=== PATIENT | female | born 1945 | race Caucasian/White ===

== ENCOUNTER 2018-01-11 11:02 | Outpatient (CLI) | payer MEDICARE ==
--- NOTE | 2018-01-11 13:45 | CT ---
CT LUMBAR SPINE WITHOUT CONTRAST: HISTORY: Lumbar radiculopathy. Low back pain with radiation down the left hip. Previous back surgery. COMPARISON: 04/07/2016 TECHNIQUE: A noncontrast lumbar spine CT is performed in the axial plane. Reformatted images are submitted for interpretation. FINDINGS: Stable rightward curvature of the lumbar spine with associated rotation. Stable endplate changes wit h osteophyte formation. Stable vacuum disk phenomenon. Interval placement of a right-sided transped icular screw at L4, L5, and S1. No perihardware lucency. Symmetric attenuation of the psoas muscles. Surgically absent gallbladder. The visualized solid org ans are grossly unremarkable. Atherosclerosis of a nonaneurysmal aorta. There is extensive calcific ation involving the left renal artery ostium. Correlate. Limited evaluation of the contents of the central spinal canal and neural foramina by technique. T11-T12: No high grade central canal stenosis or high grade foraminal narrowing. T12-L1: No high grade central canal stenosis or high grade foraminal narrowing. L1-L2: Severe loss of disk space height. No significant posterior disk abnormality. No significant central canal stenosis. The neural foramina appear to be patent bilaterally. L2-L3: Severe loss of disk space height. No significant central canal stenosis. The right neural f oramen is patent. Moderate left neural foraminal narrowing. L3-L4: Broad-based disk bulge results in at least mild to moderate central canal stenosis. The righ t neural foramen is patent. Moderate left neural foraminal narrowing. L4-L5: Broad-based disk bulge, ligamentum flavum thickening, and facet hypertrophy suggest moderate central canal stenosis. Evaluation is limited by beam attenuation artifact. At least mild bilateral foraminal narrowing. L5-S1: Vacuum disk phenomenon. There is significant loss of disk space height. [id number], the re is no high grade central canal stenosis. There may be mild central canal stenosis, predominantly due to disk material and ligamentum flavum thickening. Severe right and mild left foraminal narrowin g. IMPRESSION: 1. Interval placement of right-sided transpedicular screw at L4, L5, and S1. 2. Essentially stable degenerative change with varying degrees of central canal stenosis and foramin al narrowing. POS: [facility]
== END 2018-01-11 11:03 | disposition home or self-care (01) ==
LOC: TBSIIMAG 11:02
PROVIDERS: ATTEND Neurological Surgery
DX: M47.26 Other spondylosis with radiculopathy, lumbar region (principal); M48.061 Spinal stenosis, lumbar region without neurogenic claudication; M99.83 Other biomechanical lesions of lumbar region; Z98.890 Other specified postprocedural states
CPT/HCPCS: 72131

== ENCOUNTER 2018-02-05 05:33 | Inpatient (IN) | payer MEDICARE ==
--- NOTE | 2018-02-04 21:14 | HP ---
HISTORY OF PRESENT ILLNESS: Ms. Araujo is known to us for past unilateral fusion construct on the ny ght from L4 to S1, roughly a year and a half ago who did extraordinarily well, but the last few month s she started to experience some subsequent return of symptoms. We repeated a CT scan, which reveals fracture of the right S1 pedicle screw with some collapse of the foramen. She hopes to move forward with some type of surgical intervention at this time. PAST MEDICAL HISTORY: Significant for hypertension, hypothyroidism, hyperlipidemia, and gout. MEDICATIONS: Allopurinol, levothyroxine, Crestor, hydrochlorothiazide, diltiazem, metoprolol, citalo pram. ALLERGIES: SARAH INHIBITORS and LATEX. PHYSICAL EXAMINATION: The patient is alert and oriented x3. Gait is mildly antalgic using a cane. Lower extremity motor exam is normal. ASSESSMENT: Lumbar fusion failure and radiculopathy. PLAN: Dr. Bravo met with the patient, reviewed imaging and advocated for lumbar fusion exploration w ith facetectomy and hardware removal with possible replacement of the screw. He explained to the pat ient the risks, benefits, and alternatives of the procedure. The patient expressed understanding and would like to move forward with surgery as discussed. I do believe the patient is mentally competen t and capable of making medical decisions for herself and we will move forward with surgery as luis freeman
[2018-02-05] MEDS ORDERED: Bupivacaine HCl 0.5%/Epinephrine 1:200,000/PF 30 ml Vial ONE (06:17)
[2018-02-05] MEDS ORDERED: Thrombin 5000 UNITS/5 ML VIAL ONE (06:17)
[2018-02-05] MEDS ORDERED: Fentanyl 100 MCG/2 ML VIAL ONE ×4 (06:19→08:41)
[2018-02-05] MEDS ORDERED: Famotidine/PF 20 mg/2ml Vial ONE (06:19)
[2018-02-05] MEDS ORDERED: CEFAZOLIN/Water 2 GM/20 ML SYRINGE ONE ×2 (06:40→11:32)
[2018-02-05 07:05] LABS: Anion Gap 13 mmol/L (10-20); BUN (Urea Nitrogen) 8 mg/dL (9.8-20.1); Calc. Creatinine Clearance 0 mL/min (70-130); Calcium 9.2 mg/dL (7.8-10.44); Carbon Dioxide 25 mmol/L (23-31); Chloride 103 mmol/L (98-107); Estimated GFR-MDRD 71; Glucose 116 mg/dL (83-110); Potassium 3.8 mmol/L (3.5-5.1); Sodium 137 mmol/L (136-145)
[2018-02-05] MEDS ORDERED: SUGAMMADEX SODIUM 200 MG/2 ML VIAL ONE (08:10)
--- NOTE | 2018-02-05 08:15 | OP ---
DATE OF PROCEDURE: 02/05/2018 SURGEON: Zhen Bravo M.D. FORGING DIE FINISHER: Raúl Holt PA-C. INDICATION: Hardware failure and back pain. PROCEDURE: Reoperation, removal of posterior instrumentation including L4 through S1 royal and removal of the non-retained right S1 screw, exploration of fusion, reinsertion of hardware. ANESTHESIA: General. TECHNIQUE: The patient was brought into the operating room and placed under general anesthesia. She was flipped from a supine to a prone position on the operating room table. Her old linear incision was identified and prepped and draped in usual sterile fashion. Following appropriate operative paus e, the incision was created. Soft tissues were swept away from midline on the right side. The 3 scr ew heads were identified spanning L4-5, S1 facet screws were removed. A royal was subsequently removed . There was a loose screw identified at S1. This was removed. There was a retained portion deep wi thin the pedicle and bone that was not removed. After removal of the S1 screw a new royal was placed a long the L4 and L5 screw heads. The set screws were then replaced and final tightened. There was ec topic bone present throughout this region indicative of fusion. No additional allograft. No additio nal allograft was placed within the wound. The wound was irrigated. Hemostasis was maintained throu ghout. The wound was then closed in anatomic layers and a pressure dressing was applied. There were no known procedural complications.
[2018-02-05] MEDS ORDERED: Morphine 4 MG/ML VIAL ONE (11:03)
[2018-02-05] MEDS ORDERED: Acetaminophen/Codeine 30-300mg Tablet ONE (11:32)
[2018-02-05] MEDS ORDERED: Ondansetron ODT 4 MG TAB ONE (12:00)
--- NOTE | 2018-02-06 17:39 | EKG ---
Test Reason : Blood Pressure : / mmHG Vent. Rate : 055 BPM Atrial Rate : 055 BPM P-R Int : 196 ms QRS Dur : 100 ms QT Int : 470 ms P-R-T Axes : 063 074 033 degrees QTc Int : 449 ms Sinus bradycardia with occasional Premature ventricular complexes Otherwise normal ECG When compared with ECG of 27-JUN-2016 11:56, Premature ventricular complexes are now Present Nonspecific T wave abnormality no longer evident in Lateral leads Confirmed by DR. Kaycee MENDEZ ([id number]) on 02/06/2018 5:39:43 PM Referred By: Sigrid COREA Confirmed By:DR. Kaycee MENDEZ
== END 2018-02-05 12:15 | disposition home or self-care (01) | DRG 497 ==
LOC: SURG A 05:33 → EDSTATUS 14:39
PROVIDERS: ADMIT Neurological Surgery; ATTEND Neurological Surgery
PROC: 0QP004Z Removal of Internal Fixation Device from Lumbar Vertebra, Open Approach (ICD-10-PCS; principal; 2018-02-05)
PROC: 0QP104Z Removal of Internal Fixation Device from Sacrum, Open Approach (ICD-10-PCS; 2018-02-05)
PROC: 0QH004Z Insertion of Internal Fixation Device into Lumbar Vertebra, Open Approach (ICD-10-PCS; 2018-02-05)
DX: T84.216A Breakdown (mechanical) of internal fixation device of vertebrae, initial encounter (principal); M54.16 Radiculopathy, lumbar region; I10 Essential (primary) hypertension; E03.9 Hypothyroidism, unspecified; E78.5 Hyperlipidemia, unspecified; M10.9 Gout, unspecified; Z88.8 Allergy status to other drugs, medicaments and biological substances; Z91.040 Latex allergy status; Y83.1 Surgical operation with implant of artificial internal device as the cause of abnormal reaction of the patient, or of later complication, without mention of misadventure at the time of the procedure
CPT/HCPCS: 76001; 80048; 93005; 93010; 96374; C1713; J0131; J0670; J2270; J3010; Q0162; S0028

== ENCOUNTER 2018-03-27 10:14 | Outpatient (CLI) | payer MEDICARE ==
--- NOTE | 2018-03-27 11:41 | RAD ---
LUMBAR SPINE TWO VIEWS: HISTORY: A 72-year-old female with a history of low back pain. COMPARISON: 08/16/2016 FINDINGS: Severe dextroscoliosis. Pedicle screws at L4 and L5 with a partial screw at S1. IMPRESSION: 1. Stable dextroscoliosis. 2. Right-sided pedicle screws at L4 and L5 with a partial screw in the right S1. POS: [facility]
== END 2018-03-27 10:15 | disposition home or self-care (01) ==
LOC: TBSIIMAG 10:14
PROVIDERS: ATTEND Neurological Surgery
DX: M54.5 Low back pain (principal); M41.9 Scoliosis, unspecified; Z98.890 Other specified postprocedural states
CPT/HCPCS: 72100

== ENCOUNTER 2021-09-21 16:30 | Outpatient (CLI) | payer MEDICARE | END 2021-09-21 16:31 | disposition home or self-care (01) | LOC: SLEEPLAB 16:30 | PROVIDERS: ATTEND Family Medicine | DX: G47.33 Obstructive sleep apnea (adult) (pediatric) (principal); R53.83 Other fatigue; R51.9 Headache, unspecified; R06.83 Snoring; I10 Essential (primary) hypertension; G47.00 Insomnia, unspecified; R09.02 Hypoxemia | CPT/HCPCS: 95800 ==

== ENCOUNTER 2021-12-12 19:00 | Outpatient (CLI) | payer MEDICARE | END 2021-12-12 19:01 | disposition home or self-care (01) | LOC: SLEEPLAB 19:00 | PROVIDERS: ATTEND Family Medicine | DX: G47.33 Obstructive sleep apnea (adult) (pediatric) (principal); G47.9 Sleep disorder, unspecified; R53.83 Other fatigue; R51.9 Headache, unspecified; R06.83 Snoring; I10 Essential (primary) hypertension; R09.02 Hypoxemia | CPT/HCPCS: 95811 ==

== ENCOUNTER 2023-02-27 19:56 | Emergency (ER) | payer MEDICARE ==
[2023-02-27] MEDS ORDERED: Ketorolac Tromethamine 30 MG/ML VIAL ONE (22:53)
== END 2023-02-27 23:20 | disposition home or self-care (01) ==
LOC: ERS 19:56
DX: M54.2 Cervicalgia (principal); E03.9 Hypothyroidism, unspecified; E78.5 Hyperlipidemia, unspecified; I10 Essential (primary) hypertension; Z87.891 Personal history of nicotine dependence; Z79.899 Other long term (current) drug therapy
CPT/HCPCS: 72125; 93005; 96372; J1885

== ENCOUNTER 2023-06-26 08:00 | Inpatient (IN) | payer MEDICARE ==
[2023-06-26 10:58] LABS: Hematocrit 39.4 % (34.9-44.5); Hemoglobin 13.1 g/dL (12.0-15.5); Mean Corpuscular HGB CONC 33.2 g/dL (32.0-36.0); Mean Corpuscular Hemoglobin 31.3 pg (27.0-33.0); Platelet Count 292 10x3/uL (150-450); RBC Distribution Width 15.9 % (11.5-14.5); Red Blood Cell (RBC) Count 4.19 10x6/uL (3.90-5.03); White Blood Cell (WBC) Count 10.6 10x3/uL (3.5-10.5)
[2023-06-26 11:34] LABS: Anion Gap 13 mmol/L (10-20); BUN (Urea Nitrogen) 12 mg/dL (9.8-20.1); Calc. Creatinine Clearance 0 mL/min (70-130); Calcium 9.1 mg/dL (7.8-10.44); Carbon Dioxide 25 mmol/L (23-31); Chloride 103 mmol/L (98-107); Estimated GFR 61; Glucose 104 mg/dL (83-110); Potassium 4.2 mmol/L (3.5-5.1); Sodium 137 mmol/L (136-145)
[2023-06-27] MEDS ORDERED: Heparin 5,000 UNITS/ML VIAL ONE (06:15)
[2023-06-27] MEDS ORDERED: Bupivacaine PF 0.5% 30 ML VIAL ONE (06:15)
[2023-06-27] MEDS ORDERED: Protamine Sulfate 50 MG/5 ML VIAL ONE (06:15)
[2023-06-27] MEDS ORDERED: EPINEPHrine 1 MG/ML VIAL ONE (06:15)
[2023-06-27] MEDS ORDERED: Heparin 10,000 UNITS/1 ML VIAL 30,000 UNITS in Sodium Chloride 0.9% 1,000 ML FS SCH (06:30)
[2023-06-27] MEDS ORDERED: Fentanyl 250 MCG/5 ML VIAL ONE (06:48)
[2023-06-27] MEDS ORDERED: Etomidate 40 MG (20 mL) VIAL ONE (06:53)
[2023-06-27] MEDS ORDERED: Albumin 5% 500 ML ONE (06:53)
[2023-06-27] MEDS ORDERED: Nitroglycerin 50 MG/250 ML BOT 250 ML ONE (06:53)
[2023-06-27] MEDS ORDERED: Phenylephrine 40 MG/NS 250 ML 500 ML ONE (06:53)
[2023-06-27] MEDS ORDERED: Sodium Chloride 0.9% 100 ML ONE (07:25)
[2023-06-27] MEDS ORDERED: CEFAZOLIN 2 GM VIAL ONE (07:25)
[2023-06-27] MEDS ORDERED: Midazolam HCl 2 mg/2 ml Vial ONE (07:38)
[2023-06-27] MEDS ORDERED: ePHEDrine Sulfate 50 MG/10 ML VIAL ONE (08:37)
[2023-06-27] MEDS ORDERED: SUGAMMADEX SODIUM 200 MG/2 ML VIAL ONE (10:11)
[2023-06-27] MEDS ORDERED: diphenhydrAMINE 50 MG/ML VIAL ONE (10:15)
[2023-06-27] MEDS ORDERED: Ondansetron PF 4 MG/2 ML Vial ONE (10:15)
[2023-06-27] MEDS ORDERED: Rocuronium Bromide 10 MG/ML (10ML VIAL) ONE (10:16)
[2023-06-27] MEDS ORDERED: hydrALAZINE 20 MG/ML VIAL ONE (10:25)
[2023-06-27] MEDS ORDERED: Lidocaine 2% 6 ML (Jelly) SYR ONE (10:38)
[2023-06-27] MEDS ORDERED: Naloxone HCl 0.4 mg/ml Vial IV PRN (10:43)
[2023-06-27] MEDS ORDERED: diphenhydrAMINE 25 MG CAP PO PRN (10:43)
[2023-06-27] MEDS ORDERED: FENTANYL 500 MCG/10 ML VIAL 2,000 MCG in Sodium Chloride 0.9% 60 ML IV PRN (10:43)
[2023-06-27] MEDS ORDERED: Promethazine HCl 25 MG/ML VIAL IM PRN (10:43)
[2023-06-27] MEDS ORDERED: diphenhydrAMINE 50 MG/ML VIAL IM PRN (10:43)
[2023-06-27] MEDS ORDERED: diphenhydrAMINE 50 MG/ML VIAL IVP PRN (10:43)
[2023-06-27] MEDS ORDERED: Nitroglycerin 50 MG/250 ML BOT 250 ML IVPB PRN (10:44)
[2023-06-27] MEDS ORDERED: Ondansetron PF 4 MG/2 ML Vial IVP PRN (10:44)
[2023-06-27] MEDS ORDERED: hydrALAZINE 20 MG/ML VIAL SLOW IVP PRN (10:44)
[2023-06-27] MEDS ORDERED: Ipratropium/Albuterol 3 ML NEB NEB PRN (10:44)
[2023-06-27] MEDS ORDERED: Phenylephrine 40 MG in Sodium Chloride 0.9% 250 ML 250 ML IVPB PRN (10:44)
[2023-06-27] MEDS ORDERED: Communication Order-Pharmacy FS SCH (10:45)
[2023-06-27] MEDS ORDERED: Ondansetron HCl/PF 4 MG/2 ML Vial IVP PRN (10:45)
[2023-06-27] MEDS ORDERED: PHENYLEPHRINE-NS 100 MCG/ML 10 ML SYRINGE ONE (10:59)
[2023-06-27] MEDS ORDERED: fentaNYL 50 mcg/mL 1 mL Vial ONE (11:34)
[2023-06-27 11:35] LABS: #Basophils 0.1 thou/uL (0.0-0.2); #Eosinphils 0.2 thou/uL (0.0-0.7); #Monocytes 1.5 thou/uL (0.11-0.59); #Neutrophils 15.1 thou/uL (1.40-6.50); %Basophils 0.3 % (0.0-1.0); %Eosinophils 1.1 % (0.0-10.0); %Lymphocytes 15.2 % (21.0-51.0); %Monocytes 7.4 % (0.0-10.0); %Neutrophils 75.4 % (42.0-75.0); Hemoglobin 11.1 g/dL (12.0-16.0); Mean Corpuscular HGB CONC 33.6 g/dL (32.0-36.0); Mean Corpuscular Hemoglobin 31.7 pg (27.0-31.0); Mean Corpuscular Volume 94.3 fl (78.0-98.0); Mean Platelet Volume 10.2 fL (7.4-10.4); Platelet Count 227 10x3/uL (130-400); RBC Distribution Width 15.9 % (11.5-14.5); White Blood Cell (WBC) Count 19.9 10x3/uL (4.8-10.8)
[2023-06-27 11:57] LABS: Anion Gap 13 mmol/L (10-20); BUN (Urea Nitrogen) 9 mg/dL (9.8-20.1); Calc. Creatinine Clearance 60 mL/min (70-130); Calcium 7.8 mg/dL (7.8-10.44); Carbon Dioxide 20 mmol/L (23-31); Chloride 110 mmol/L (98-107); Estimated GFR 57; Glucose 191 mg/dL (83-110); Potassium 3.2 mmol/L (3.5-5.1); Sodium 140 mmol/L (136-145)
[2023-06-27] MEDS: Phenylephrine 40 MG/NS 250 ML 40 MG in Premix 1 BAG IVPB PRN (12:01)
[2023-06-27] MEDS: D5 1/2 NS w/20 mEq KCL 1,000 ML IV SCH (12:01)
[2023-06-27] MEDS: Fentanyl CADD 100 ML IVPB SCH (12:37)
[2023-06-27] MEDS: Albumin 5% 500 ML ONE (14:39)
[2023-06-27] MEDS: Albumin 5% 12.5 GM (250 mL) BOT IVPB SCH (14:48)
[2023-06-27] MEDS: CEFAZOLIN 2 GM in Sodium Chloride 0.9% 100 ML IVPB SCH (15:54)
[2023-06-28] MEDS: Albumin 5% 12.5 GM (250 mL) BOT IVPB PRN (01:15)
[2023-06-28 05:11] LABS: #Monocytes 1.4 thou/uL (0.11-0.59); #Neutrophils 8.7 thou/uL (1.40-6.50); %Basophils 0.2 % (0.0-1.0); %Eosinophils 0.4 % (0.0-10.0); %Lymphocytes 7.6 % (21.0-51.0); %Monocytes 12.3 % (0.0-10.0); %Neutrophils 79.1 % (42.0-75.0); Hematocrit 27.8 % (36.0-47.0); Mean Corpuscular HGB CONC 32.4 g/dL (32.0-36.0); Mean Corpuscular Hemoglobin 31.4 pg (27.0-31.0); Mean Corpuscular Volume 96.9 fl (78.0-98.0); Mean Platelet Volume 10.1 fL (7.4-10.4); Platelet Count 184 10x3/uL (130-400); RBC Distribution Width 16.1 % (11.5-14.5); Red Blood Cell (RBC) Count 2.87 mill/uL (4.20-5.40)
[2023-06-28] MEDS: Sodium Chloride 0.9% 1,000 ML IV SCH (08:02)
[2023-06-28] MEDS: Acetaminophen 325 MG TAB PO PRN (08:11)
[2023-06-28] MEDS: Ondansetron PF 4 MG/2 ML Vial IVP PRN (14:28)
[2023-06-28] MEDS: Lactated Ringer's 500 ML IV SCH ×2 (19:31→21:30)
[2023-06-28] MEDS: Lorazepam 2 MG/ML VIAL SLOW IVP SCH (19:34)
[2023-06-28] MEDS ORDERED: Lactated Ringer's 1,000 ML IV SCH (19:45)
[2023-06-28 19:48] LABS: Hematocrit 30.5 % (36.0-47.0); Hemoglobin 9.7 g/dL (12.0-16.0); Manual Diff?? YES; Mean Corpuscular HGB CONC 31.8 g/dL (32.0-36.0); Mean Corpuscular Hemoglobin 31.3 pg (27.0-31.0); Mean Corpuscular Volume 98.4 fl (78.0-98.0); Mean Platelet Volume 10.4 fL (7.4-10.4); Platelet Count 185 10x3/uL (130-400); RBC Distribution Width 16.5 % (11.5-14.5); White Blood Cell (WBC) Count 13.9 10x3/uL (4.8-10.8)
[2023-06-28] MEDS: NOREPINEPHRINE 8 MG/250 ML-D5W 250 ML ONE (19:49)
[2023-06-28 19:52] LABS: Base Excess (BEa) -14.6 mEq/L (-2.0 to +3.0); CO2 Tension 28.4 mmHg (35.0-45.0); Calcium, Ionized (arterial) 1.12 mmol/L (1.12-1.30); Carboxyhemoglobin (COHb) 0.3 gm% (0.0-3.0); Hematocrit-ABG 30 % (36.0-47.0); Hemoglobin (Hb) 10.3 g/dL (12.0-16.0); O2 Tension (PaO2), arterial 126.8 mmHg (> 70.0); pH, Arterial 7.228 (7.35-7.45)
[2023-06-28 19:54] LABS: Puncture Site RBA
[2023-06-28] MEDS ORDERED: Glucagon 1 MG/ML KIT IM PRN (19:57)
[2023-06-28] MEDS ORDERED: Dextrose 5% in Water 1,000 ML IV PRN (19:57)
[2023-06-28] MEDS: Sodium Bicarb 50 mEq/50 ML VIAL ONE (19:59)
[2023-06-28] MEDS: Lactated Ringer's 1,000 ML IV SCH (20:00)
[2023-06-28] MEDS ORDERED: Cefepime 2 GM in Sodium Chloride 0.9% 100 ML IVPB SCH (20:00)
[2023-06-28] MEDS: Thiamine HCl 200 MG/2 ML VIAL SLOW IVP SCH (20:02)
[2023-06-28 20:03] LABS: ALT (SGPT) 37 U/L (8-55); AST (SGOT) 174 U/L (5-34); Alkaline Phosphatase 45 U/L (40-110); Anion Gap 17 mmol/L (10-20); BUN (Urea Nitrogen) 18 mg/dL (9.8-20.1); Calc. Creatinine Clearance 23 mL/min (70-130); Calcium 7.8 mg/dL (7.8-10.44); Carbon Dioxide 13 mmol/L (23-31); Chloride 114 mmol/L (98-107); Estimated GFR 18; Globulin 1.8 g/dL (2.4-3.5); Glucose 121 mg/dL (83-110); Lipase 15 U/L (8-78); Magnesium 1.4 mg/dL (1.6-2.6); Potassium 4.5 mmol/L (3.5-5.1); Protein, Total 4.8 g/dL (5.8-8.1); Sodium 139 mmol/L (136-145)
[2023-06-28] MEDS: Lorazepam 2 MG/ML VIAL ONE (20:03)
[2023-06-28 20:07] LABS: Delete Auto Diff?? YES
[2023-06-28] MEDS: Vancomycin (BATCH) 2 GM in Premix 1 BAG IVPB SCH (20:12)
[2023-06-28] MEDS: Sodium Bicarb 50 mEq/50 ML VIAL IVP SCH (20:15)
[2023-06-28 20:25] LABS: Band 39 % (5-11); Burr Cells SLIGHT = 2-5 cells HPF (0-1); CellaVision Operator ID LAB.KB; Lymphocytes 11 % (21-51); Monocytes 7 % (0-10); Neutrophil 42 % (42-75); Ovalocytes SLIGHT = 2-5 cells HPF (0-1); Platelet Adequacy Comment Platelets Normal; Polychromasia SLIGHT = 2-3 cells HPF (0-2); Total Cell Count 102
[2023-06-28 20:26] LABS: Critical Call Chem-Lactate ICU.SW @2025; Lactic Acid 6.6 mmol/L (0.5-2.2)
[2023-06-28 21:17] LABS: Bacteria/HPF 1+ HPF (None Seen); Bilirubin Negative (Negative); Blood, Urine 3+ (Negative); CAUTI Indications for Culture Alt mental st,lethar; Clarity Turbid (Clear); Glucose, Urine (Dipstick) Normal (Negative); Ketone, Urine 10 mg/dL (Negative); Leukocyte 75 Leu/uL (Negative); Nitrite Negative (Negative); Protein, Urine (Dipstick) 70 mg/dL (Neg-Trace); RBC/HPF Greater than 50 HPF (0-3); Specific Gravity, Urine 1.027 (1.002-1.036); Squamous Epithelial 0-3 HPF (0-3); Urobilinogen Normal mg/dL (Less than 2); pH, Urine 5.5 (5.0-9.0)
[2023-06-28 21:18] LABS: Urine Culture Reflex No No
[2023-06-28] MEDS: Sodium Bicarbonate 150 MEQ in Dextrose 5% in Water 1,000 ML IV SCH (21:42)
[2023-06-28] MEDS: Magnesium 2 GM/50 ML(in water) 2 GM in Premix 1 BAG IVPB SCH (21:43)
[2023-06-28] MEDS: Pantoprazole 40 MG VIAL IVP SCH (21:44)
[2023-06-28] MEDS: Piperacillin/Tazobactam 3.375 GM in Sodium Chloride 0.9% 100 ML IVPB SCH (21:44)
[2023-06-28] MEDS: Vasopressin 20 UNITS in Sodium Chloride 0.9% 50 ML IV SCH (22:10)
[2023-06-28] MEDS: Hydrocortisone Sod Succ/PF 100 mg/2 ml Vial IVP SCH (22:27)
[2023-06-29] MEDS: Piperacillin/Tazobactam 3.375 GM in Sodium Chloride 0.9% 100 ML IVPB SCH (00:35)
[2023-06-29 00:59] LABS: Hematocrit 30.7 % (36.0-47.0); Hemoglobin 9.5 g/dL (12.0-16.0); Manual Diff?? YES; Mean Corpuscular HGB CONC 30.9 g/dL (32.0-36.0); Mean Corpuscular Hemoglobin 30.5 pg (27.0-31.0); Mean Corpuscular Volume 98.7 fl (78.0-98.0); Mean Platelet Volume 10.6 fL (7.4-10.4); Platelet Count 171 10x3/uL (130-400); RBC Distribution Width 16.6 % (11.5-14.5); Red Blood Cell (RBC) Count 3.11 mill/uL (4.20-5.40)
[2023-06-29 01:18] LABS: Delete Auto Diff?? YES
[2023-06-29 01:21] LABS: Critical Call Chem-Lactate ICU.SW@0120; Lactic Acid 7.1 mmol/L (0.5-2.2)
[2023-06-29 01:31] LABS: ALT (SGPT) 330 U/L (8-55); AST (SGOT) 814 U/L (5-34); Albumin 2.7 g/dL (3.4-4.8); Alkaline Phosphatase 50 U/L (40-110); Anion Gap 18 mmol/L (10-20); BUN (Urea Nitrogen) 21 mg/dL (9.8-20.1); Calc. Creatinine Clearance 24 mL/min (70-130); Calcium 7.6 mg/dL (7.8-10.44); Carbon Dioxide 15 mmol/L (23-31); Chloride 111 mmol/L (98-107); Estimated GFR 18; Globulin 1.7 g/dL (2.4-3.5); Glucose 118 mg/dL (83-110); Potassium 4.1 mmol/L (3.5-5.1); Protein, Total 4.4 g/dL (5.8-8.1); Sodium 140 mmol/L (136-145)
[2023-06-29 01:36] LABS: Band 25 % (5-11); Burr Cells MODERATE= 6-15 cells HPF (0-1); CellaVision Operator ID LAB.KB; Hypochromia SLIGHT = 6-15 cells HPF (0-5); Large Platelets 0.9 % (0-5); Lymphocytes 5 % (21-51); Monocytes 7 % (0-10); Myelocyte 2 % (0-0); Neutrophil 62 % (42-75); Ovalocytes SLIGHT = 2-5 cells HPF (0-1); Platelet Adequacy Comment Platelets Normal; Polychromasia SLIGHT = 2-3 cells HPF (0-2); Smudge Cells 2.8 %; Total Cell Count 107
[2023-06-29] MEDS: Albumin 25% 25 GM (100 mL) BOT IVPB SCH (03:12)
[2023-06-29] MEDS: NOREPINEPHRINE 8 MG/250 ML-D5W 250 ML IVPB SCH (03:56)
[2023-06-29 04:54] LABS: Hematocrit 27.6 % (36.0-47.0); Hemoglobin 8.7 g/dL (12.0-16.0); Manual Diff?? YES; Mean Corpuscular HGB CONC 31.5 g/dL (32.0-36.0); Mean Corpuscular Hemoglobin 31.1 pg (27.0-31.0); Mean Corpuscular Volume 98.6 fl (78.0-98.0); Platelet Count 167 10x3/uL (130-400); RBC Distribution Width 16.7 % (11.5-14.5)
[2023-06-29 05:21] LABS: Delete Auto Diff?? YES
[2023-06-29 05:23] LABS: ALT (SGPT) 667 U/L (8-55); AST (SGOT) 2154 U/L (5-34); Albumin 3.1 g/dL (3.4-4.8); Alkaline Phosphatase 49 U/L (40-110); Anion Gap 20 mmol/L (10-20); BUN (Urea Nitrogen) 23 mg/dL (9.8-20.1); Bilirubin, Total 1.1 mg/dL (0.2-1.2); Calc. Creatinine Clearance 23 mL/min (70-130); Calcium 7.7 mg/dL (7.8-10.44); Carbon Dioxide 16 mmol/L (23-31); Chloride 108 mmol/L (98-107); Estimated GFR 17; Globulin 1.6 g/dL (2.4-3.5); Glucose 158 mg/dL (83-110); Magnesium 1.7 mg/dL (1.6-2.6); Phosphorus 4.9 mg/dL (2.3-4.7); Protein, Total 4.7 g/dL (5.8-8.1); Sodium 140 mmol/L (136-145)
[2023-06-29 05:24] LABS: Lactic Acid 7.7 mmol/L (0.5-2.2)
[2023-06-29] MEDS: Lactated Ringer's 500 ML IV SCH (05:50)
[2023-06-29] MEDS: Lactated Ringer's 1,000 ML IV SCH ×2 (06:11→16:00)
[2023-06-29 07:11] LABS: ALV-art Gradient 240.975 mmHg (0-20); Actual Bicarbonate (HCO3a) 14.9 mEq/L (22-28); Base Excess (BEa) -11.8 mEq/L (-2.0 to +3.0); CO2 Tension 36.9 mmHg (35.0-45.0); Carboxyhemoglobin (COHb) 0.2 gm% (0.0-3.0); Hematocrit-ABG 28 % (36.0-47.0); Hemoglobin (Hb) 9.5 g/dL (12.0-16.0); O2 Tension (PaO2), arterial 69.4 mmHg (> 70.0); Potassium - ABG Lab 4.01 mmol/L (3.70-5.30); Puncture Site RBA; pH, Arterial 7.224 (7.35-7.45)
[2023-06-29] MEDS: Furosemide 40 MG (4 mL) VIAL SLOW IVP SCH (08:07)
[2023-06-29 08:14] LABS: Band 20 % (5-11); Lymphocytes 6 % (21-51); Metamyelocyte 2 % (0-0); Monocytes 9 % (0-10); Neutrophil 63 % (42-75); Schistocytes SLIGHT = 2-5 cells (100X) (0-1/hpf)
[2023-06-29 08:15] LABS: Burr Cells MODERATE= 6-15 cells (100X) (0-1/hpf)
[2023-06-29] MEDS ORDERED: Vancomycin HCl 750 MG in Sodium Chloride 0.9% 100 ML IVPB SCH (09:00)
[2023-06-29] MEDS ORDERED: KETAMINE 100 MG/ML (5ML VIAL) ONE (09:28)
[2023-06-29 09:47] LABS: Actual Bicarbonate (HCO3a) 11.6 mEq/L (22-28)
[2023-06-29] MEDS: Folic Acid 1 MG TAB PO SCH (10:15)
[2023-06-29] MEDS: Multivitamin W/ Minerals 1 TAB PO SCH (10:15)
[2023-06-29] MEDS: Hydrocortisone Sod Succ/PF 100 mg/2 ml Vial IVP SCH (10:17)
[2023-06-29] MEDS: Pantoprazole 40 MG VIAL IVP SCH (10:17)
[2023-06-29 10:41] LABS: Base Excess (BEa) -13.7 mEq/L (-2.0 to +3.0); CO2 Tension 41.4 mmHg (35.0-45.0); Calcium, Ionized (arterial) 1.11 mmol/L (1.12-1.30); Carboxyhemoglobin (COHb) 0.1 gm% (0.0-3.0); Hematocrit-ABG 33 % (36.0-47.0); Hemoglobin (Hb) 11.1 g/dL (12.0-16.0); O2 Tension (PaO2), arterial 61.6 mmHg (> 70.0); Potassium - ABG Lab 4.37 mmol/L (3.70-5.30)
[2023-06-29 10:49] LABS: Puncture Site RBA; pH, Arterial 7.157 (7.35-7.45)
[2023-06-29] MEDS ORDERED: Calcium Chloride 1 GM/10 ML Abboject SYRINGE ONE (11:30)
[2023-06-29] MEDS ORDERED: EPINEPHrine 1 MG/10 ML Abboject SYRINGE ONE (11:30)
[2023-06-29] MEDS ORDERED: Lactated Ringer's 1,000 ML IV SCH (11:30)
[2023-06-29] MEDS ORDERED: Albumin 5% 500 ML ONE (11:30)
[2023-06-29] MEDS ORDERED: Vasopressin 20 UNITS/ML VIAL ONE ×2 (11:30→12:53)
[2023-06-29] MEDS ORDERED: Rocuronium Bromide 10 MG/ML (10ML VIAL) ONE (11:45)
[2023-06-29] MEDS ORDERED: ePHEDrine Sulfate 50 MG/10 ML VIAL ONE (11:46)
[2023-06-29] MEDS ORDERED: fentaNYL PF 100 MCG/2 ML SYRINGE ONE (11:46)
[2023-06-29] MEDS ORDERED: PHENYLEPHRINE-NS 100 MCG/ML 10 ML SYRINGE ONE (11:46)
[2023-06-29] MEDS ORDERED: Midazolam HCl 2 mg/2 ml Vial ONE (11:46)
[2023-06-29] MEDS ORDERED: Etomidate 40 MG (20 mL) VIAL ONE (11:47)
[2023-06-29] MEDS: Sodium Bicarb 50 mEq/50 ML VIAL IVP SCH (12:00)
[2023-06-29] MEDS: Sodium Bicarb 50 mEq/50 ML VIAL ONE (12:01)
[2023-06-29] MEDS ORDERED: SUCCINYLCHOLINE/SOD CL,ISO/PF 200 MG/10 ML SYRINGE FS ONE (12:12)
[2023-06-29] MEDS ORDERED: Norepinephrine 4 MG/4 ML VIAL ONE (12:17)
[2023-06-29] MEDS: Sodium Bicarbonate 150 MEQ in Dextrose 5% in Water 1,000 ML IV SCH (12:30)
[2023-06-29] MEDS ORDERED: cefOXitin 2 GM VIAL ONE (12:40)
[2023-06-29 13:01] LABS: Actual Bicarbonate (HCO3a) 22.8 mEq/L (22-28); Analyzer IN Cardio OR; Base Excess (BEa) -0.7 mEq/L (-2.0 to +3.0); CO2 Tension 33.5 mmHg (35.0-45.0); Calcium, Ionized (arterial) 1.14 mmol/L (1.12-1.30); Hematocrit-ABG 32 % (36.0-47.0); O2 Tension (PaO2), arterial 436.3 mmHg (> 70.0); Potassium - ABG Lab 3.47 mmol/L (3.70-5.30)
[2023-06-29 13:02] LABS: Actual Bicarbonate (HCO3a) 20.7 mEq/L (22-28); Analyzer IN Cardio OR; Base Excess (BEa) -3.8 mEq/L (-2.0 to +3.0); CO2 Tension 35.7 mmHg (35.0-45.0); Calcium, Ionized (arterial) 1.09 mmol/L (1.12-1.30); Carboxyhemoglobin (COHb) 0.3 gm% (0.0-3.0); Hematocrit-ABG 34 % (36.0-47.0); Hemoglobin (Hb) 11.4 g/dL (12.0-16.0); O2 Tension (PaO2), arterial 141.4 mmHg (> 70.0); Potassium - ABG Lab 3.16 mmol/L (3.70-5.30); pH, Arterial 7.381 (7.35-7.45)
[2023-06-29 13:03] LABS: Puncture Site Arterial Line
[2023-06-29 13:03] LABS: Puncture Site Arterial Line
[2023-06-29 14:33] LABS: Actual Bicarbonate (HCO3a) 15.8 mEq/L (22-28); Base Excess (BEa) -9.4 mEq/L (-2.0 to +3.0); CO2 Tension 31.8 mmHg (35.0-45.0); Calcium, Ionized (arterial) 1.09 mmol/L (1.12-1.30); Carboxyhemoglobin (COHb) 0.3 gm% (0.0-3.0); Hematocrit-ABG 33 % (36.0-47.0); Hemoglobin (Hb) 11.3 g/dL (12.0-16.0); O2 Tension (PaO2), arterial 78.5 mmHg (> 70.0); Potassium - ABG Lab 3.92 mmol/L (3.70-5.30); pH, Arterial 7.313 (7.35-7.45)
[2023-06-29 14:34] LABS: Puncture Site ALINE
[2023-06-29] MEDS ORDERED: Ventilator Sedation Protocol FS SCH (16:45)
[2023-06-29] MEDS ORDERED: Propofol BOLUS 1,000 MG/100 ML VIAL IV PRN (17:00)
[2023-06-29] MEDS ORDERED: Fentanyl BOLUS 250 ML IVPB PRN (17:00)
[2023-06-29] MEDS ORDERED: Propofol 1,000 MG/100 ML VIAL IV PRN (17:00)
[2023-06-29] MEDS ORDERED: Morphine 2 MG/ML VIAL SLOW IVP PRN (17:00)
[2023-06-29] MEDS ORDERED: DISCONTINUE PREVIOUS NARCOTIC PAIN MEDICATIONS AND BENZODIAZEPINES FS SCH (17:00)
[2023-06-29] MEDS: Thiamine HCl 200 MG/2 ML VIAL SLOW IVP SCH (20:10)
[2023-06-29] MEDS ORDERED: Vancomycin HCl 500 MG in Sodium Chloride 0.9% 100 ML IVPB SCH (21:00)
[2023-06-29] MEDS: Fentanyl CADD 100 ML IV SCH (23:02)
[2023-06-30 02:46] LABS: Actual Bicarbonate (HCO3a) 17.2 mEq/L (22-28); Base Excess (BEa) -6.1 mEq/L (-2.0 to +3.0); CO2 Tension 27.8 mmHg (35.0-45.0); Calcium, Ionized (arterial) 1.06 mmol/L (1.12-1.30); Carboxyhemoglobin (COHb) 0.3 gm% (0.0-3.0); Hematocrit-ABG 36 % (36.0-47.0); Hemoglobin (Hb) 12.3 g/dL (12.0-16.0); O2 Tension (PaO2), arterial 74.7 mmHg (> 70.0); Potassium - ABG Lab 4.56 mmol/L (3.70-5.30); pH, Arterial 7.409 (7.35-7.45)
[2023-06-30 02:47] LABS: Puncture Site LINE
[2023-06-30 04:16] LABS: Hematocrit 33.7 % (36.0-47.0); Hemoglobin 11.3 g/dL (12.0-16.0); Manual Diff?? YES; Mean Corpuscular HGB CONC 33.5 g/dL (32.0-36.0); Mean Corpuscular Hemoglobin 30.1 pg (27.0-31.0); Mean Platelet Volume 11.3 fL (7.4-10.4); Platelet Count 121 10x3/uL (130-400); RBC Distribution Width 18.1 % (11.5-14.5); Red Blood Cell (RBC) Count 3.75 mill/uL (4.20-5.40); White Blood Cell (WBC) Count 10.3 10x3/uL (4.8-10.8)
[2023-06-30 04:22] LABS: Delete Auto Diff?? YES; Mean Corpuscular Volume 89.9 fl (78.0-98.0)
[2023-06-30 04:27] LABS: INR-International Normal Ratio 2.9; PTT 41.9 sec (22.9-36.1); Prothrombin Time 30.5 sec (12.0-14.7)
[2023-06-30 04:44] LABS: ALT (SGPT) 554 U/L (8-55); AST (SGOT) 1754 U/L (5-34); Albumin 2.3 g/dL (3.4-4.8); Alkaline Phosphatase 53 U/L (40-110); Anion Gap 20 mmol/L (10-20); BUN (Urea Nitrogen) 30 mg/dL (9.8-20.1); Bilirubin, Total 2.4 mg/dL (0.2-1.2); Calc. Creatinine Clearance 20 mL/min (70-130); Calcium 7.8 mg/dL (7.8-10.44); Carbon Dioxide 18 mmol/L (23-31); Chloride 107 mmol/L (98-107); Estimated GFR 14; Globulin 1.5 g/dL (2.4-3.5); Glucose 60 mg/dL (83-110); Magnesium 1.5 mg/dL (1.6-2.6); Phosphorus 4.8 mg/dL (2.3-4.7); Potassium 4.8 mmol/L (3.5-5.1); Protein, Total 3.8 g/dL (5.8-8.1); Sodium 140 mmol/L (136-145)
[2023-06-30 04:51] LABS: Burr Cells SLIGHT = 2-5 cells HPF (0-1); CellaVision Operator ID lab.dlt; Poikilocytosis SLIGHT = 6-15 cells HPF (0-5); Polychromasia SLIGHT = 2-3 cells HPF (0-2); Smudge Cells 5.8 %
[2023-06-30] MEDS: Dextrose 50% Abboject 50 ML SYRINGE SLOW IVP PRN (05:29)
[2023-06-30 06:04] LABS: Band 25 % (5-11); Large Platelets 3.1 % (0-5); Lymphocytes 5 % (21-51); Monocytes 28 % (0-10); Neutrophil 42 % (42-75); Nucleated RBC (Manual Ct) 1 % (0); Platelet Adequacy Comment Platelets Decreased; Total Cell Count 96
[2023-06-30] MEDS: Dextrose 5%-Lactated Ringers 1,000 ML IV SCH (06:12)
[2023-06-30] MEDS: Magnesium 2 GM/50 ML(in water) 2 GM in Premix 1 BAG IVPB SCH (06:15)
[2023-06-30 06:41] LABS: Actual Bicarbonate (HCO3a) 16.7 mEq/L (22-28); Base Excess (BEa) -7.4 mEq/L (-2.0 to +3.0); CO2 Tension 29.7 mmHg (35.0-45.0); Calcium, Ionized (arterial) 1.03 mmol/L (1.12-1.30); Hematocrit-ABG 34 % (36.0-47.0); Hemoglobin (Hb) 11.4 g/dL (12.0-16.0); O2 Tension (PaO2), arterial 73.2 mmHg (> 70.0); Potassium - ABG Lab 4.36 mmol/L (3.70-5.30); pH, Arterial 7.369 (7.35-7.45)
[2023-06-30 08:28] LABS: ALV-art Gradient 174.875 mmHg (0-20); Puncture Site ALINE
[2023-06-30] MEDS: Albumin 25% 25 GM (100 mL) BOT IVPB SCH (09:17)
[2023-06-30] MEDS: Furosemide 40 MG (4 mL) VIAL SLOW IVP SCH (09:56)
[2023-06-30 14:05] LABS: Hematocrit 30.8 % (36.0-47.0); Hemoglobin 10.2 g/dL (12.0-16.0); Manual Diff?? YES; Mean Corpuscular HGB CONC 33.1 g/dL (32.0-36.0); Mean Corpuscular Volume 90.6 fl (78.0-98.0); Mean Platelet Volume 11.7 fL (7.4-10.4); RBC Distribution Width 18.1 % (11.5-14.5); White Blood Cell (WBC) Count 16.2 10x3/uL (4.8-10.8)
[2023-06-30 14:10] LABS: Delete Auto Diff?? YES; Platelet Count 106 10x3/uL (130-400)
[2023-06-30 14:34] LABS: ALT (SGPT) 346 U/L (8-55); AST (SGOT) 1309 U/L (5-34); Albumin 2.5 g/dL (3.4-4.8); Alkaline Phosphatase 72 U/L (40-110); Anion Gap 20 mmol/L (10-20); BUN (Urea Nitrogen) 35 mg/dL (9.8-20.1); Bilirubin, Total 3.2 mg/dL (0.2-1.2); Calc. Creatinine Clearance 19 mL/min (70-130); Calcium 7.7 mg/dL (7.8-10.44); Carbon Dioxide 19 mmol/L (23-31); Chloride 104 mmol/L (98-107); Estimated GFR 12; Globulin 1.5 g/dL (2.4-3.5); Glucose 174 mg/dL (83-110); Potassium 4.5 mmol/L (3.5-5.1); Sodium 138 mmol/L (136-145)
[2023-06-30 14:40] LABS: Anisocytosis SLIGHT = 6-15 cells HPF (0-5); Band 33 % (5-11); Burr Cells SLIGHT = 2-5 cells HPF (0-1); CellaVision Operator ID LAB.MJL; Dohle Bodies SLIGHT; Lymphocytes 3 % (21-51); Metamyelocyte 5 % (0-0); Monocytes 10 % (0-10); Myelocyte 2 % (0-0); Neutrophil 47 % (42-75); Ovalocytes SLIGHT = 2-5 cells HPF (0-1); Platelet Adequacy Comment Platelets Decreased; Poikilocytosis SLIGHT = 6-15 cells HPF (0-5); Polychromasia SLIGHT = 2-3 cells HPF (0-2); Reactive Lymphocytes 1 % (0-10); Total Cell Count 104; Vacuoles SLIGHT
[2023-07-01 04:35] LABS: Hematocrit 30.6 % (36.0-47.0); Hemoglobin 9.7 g/dL (12.0-16.0); Manual Diff?? YES; Mean Corpuscular HGB CONC 31.7 g/dL (32.0-36.0); Mean Corpuscular Hemoglobin 29.9 pg (27.0-31.0); Mean Platelet Volume 12.1 fL (7.4-10.4); RBC Distribution Width 18.5 % (11.5-14.5); Red Blood Cell (RBC) Count 3.24 mill/uL (4.20-5.40); White Blood Cell (WBC) Count 12.9 10x3/uL (4.8-10.8)
[2023-07-01 04:42] LABS: Delete Auto Diff?? YES; Mean Corpuscular Volume 94.4 fl (78.0-98.0); Platelet Count 74 10x3/uL (130-400)
[2023-07-01 05:10] LABS: Band 20 % (5-11); CellaVision Operator ID LAB.CLH1; Hypochromia SLIGHT = 6-15 cells HPF (0-5); Large Platelets 2.9 % (0-5); Lymphocytes 10 % (21-51); Monocytes 11 % (0-10); Neutrophil 60 % (42-75); Nucleated RBC (Manual Ct) 9 % (0); Platelet Adequacy Comment Platelets Decreased; Polychromasia SLIGHT = 2-3 cells HPF (0-2); Total Cell Count 105
[2023-07-01 05:50] LABS: Albumin 2.6 g/dL (3.4-4.8)
[2023-07-01 05:51] LABS: Chloride 108 mmol/L (98-107); Potassium 5.5 mmol/L (3.5-5.1); Sodium 139 mmol/L (136-145)
[2023-07-01 05:52] LABS: Calcium 7.8 mg/dL (7.8-10.44); Glucose 119 mg/dL (83-110)
[2023-07-01 05:53] LABS: Globulin 1.5 g/dL (2.4-3.5); Protein, Total 4.1 g/dL (5.8-8.1)
[2023-07-01 05:54] LABS: Anion Gap 27 mmol/L (10-20); Bilirubin, Total 4.3 mg/dL (0.2-1.2); Carbon Dioxide 10 mmol/L (23-31)
[2023-07-01 05:55] LABS: Alkaline Phosphatase 57 U/L (40-110)
[2023-07-01 05:56] LABS: Calc. Creatinine Clearance 16 mL/min (70-130); Estimated GFR 10
[2023-07-01 05:57] LABS: BUN (Urea Nitrogen) 40 mg/dL (9.8-20.1)
[2023-07-01 05:58] LABS: ALT (SGPT) 1092 U/L (8-55)
[2023-07-01 06:01] LABS: Phosphorus 6.9 mg/dL (2.3-4.7)
[2023-07-01 06:24] LABS: AST (SGOT) Greater than 3500 U/L (5-34)
[2023-07-01] MEDS: Furosemide 40 MG (4 mL) VIAL SLOW IVP SCH (09:04)
[2023-07-01] MEDS: Thiamine 100 MG TAB PO SCH (20:33)
[2023-07-02 04:27] LABS: Hematocrit 33.1 % (36.0-47.0); Hemoglobin 11.2 g/dL (12.0-16.0); Manual Diff?? YES; Mean Corpuscular HGB CONC 33.8 g/dL (32.0-36.0); Mean Corpuscular Hemoglobin 29.9 pg (27.0-31.0); Mean Corpuscular Volume 88.5 fl (78.0-98.0); Mean Platelet Volume 13.1 fL (7.4-10.4); RBC Distribution Width 17.5 % (11.5-14.5); Red Blood Cell (RBC) Count 3.74 mill/uL (4.20-5.40); White Blood Cell (WBC) Count 11.8 10x3/uL (4.8-10.8)
[2023-07-02 04:28] LABS: Delete Auto Diff?? YES; Platelet Count 63 10x3/uL (130-400)
[2023-07-02 04:57] LABS: ALT (SGPT) 1232 U/L (8-55); AST (SGOT) Greater than 3500 U/L (5-34); Albumin 2.4 g/dL (3.4-4.8); Alkaline Phosphatase 82 U/L (40-110); Anion Gap 13 mmol/L (10-20); BUN (Urea Nitrogen) 52 mg/dL (9.8-20.1); Bilirubin, Total 4.7 mg/dL (0.2-1.2); Calc. Creatinine Clearance 15 mL/min (70-130); Calcium 7.9 mg/dL (7.8-10.44); Carbon Dioxide 24 mmol/L (23-31); Chloride 108 mmol/L (98-107); Estimated GFR 9; Globulin 1.6 g/dL (2.4-3.5); Glucose 143 mg/dL (83-110); Phosphorus 4.2 mg/dL (2.3-4.7); Potassium 4.3 mmol/L (3.5-5.1); Sodium 141 mmol/L (136-145)
[2023-07-02 05:23] LABS: Anisocytosis SLIGHT = 6-15 cells HPF (0-5); Band 4 % (5-11); Burr Cells MODERATE= 6-15 cells HPF (0-1); CellaVision Operator ID lab.sh2; Dohle Bodies SLIGHT; Large Platelets 12.4 % (0-5); Lymphocytes 8 % (21-51); Macrocytosis SLIGHT = 6-15 cells HPF (0-5); Monocytes 15 % (0-10); Neutrophil 73 % (42-75); Nucleated RBC (Manual Ct) 16 % (0); Ovalocytes SLIGHT = 2-5 cells HPF (0-1); Platelet Adequacy Comment Platelets Decreased; Poikilocytosis MODERATE=16-30 cells HPF (0-5); Polychromasia SLIGHT = 2-3 cells HPF (0-2); Smudge Cells 9.5 %; Total Cell Count 105; Vacuoles SLIGHT
[2023-07-02] MEDS: Lorazepam 2 MG/ML VIAL SLOW IVP PRN (17:07)
[2023-07-03 06:44] VITALS: BP 107/53
[2023-07-03 07:45] VITALS: BMI 36.9
[2023-07-03 08:16] VITALS: TEMP 97
[2023-07-03] MEDS ORDERED: Acetaminophen 325 MG TAB PO PRN (09:00)
[2023-07-03] MEDS: Furosemide 40 MG (4 mL) VIAL SLOW IVP SCH (09:10)
[2023-07-04 13:42] LABS: Actual Bicarbonate (HCO3a) 14.3 mEq/L (22-28)
== END 2023-07-03 14:06 | disposition hospice, inpatient (51) | DRG 270 ==
LOC: SURG A 06-27 06:04 → CCU 06-27 11:26
PROVIDERS: ADMIT Thoracic Surgery (Cardiothoracic Vascular Surgery); ATTEND Thoracic Surgery (Cardiothoracic Vascular Surgery)
PROC: 04100JJ Bypass Abdominal Aorta to Left Femoral Artery with Synthetic Substitute, Open Approach (ICD-10-PCS; 2023-06-27)
PROC: 04CL0ZZ Extirpation of Matter from Left Femoral Artery, Open Approach (ICD-10-PCS; 2023-06-27)
PROC: 30233J1 Transfusion of Nonautologous Serum Albumin into Peripheral Vein, Percutaneous Approach (ICD-10-PCS; 2023-06-27)
PROC: 3E033XZ Introduction of Vasopressor into Peripheral Vein, Percutaneous Approach (ICD-10-PCS; 2023-06-28)
PROC: 4A133R1 Monitoring of Arterial Saturation, Peripheral, Percutaneous Approach (ICD-10-PCS; 2023-06-28)
PROC: 0DJD8ZZ Inspection of Lower Intestinal Tract, Via Natural or Artificial Opening Endoscopic (ICD-10-PCS; principal; 2023-06-29)
PROC: 0DTG0ZZ Resection of Left Large Intestine, Open Approach (ICD-10-PCS; 2023-06-29)
PROC: 0DT80ZZ Resection of Small Intestine, Open Approach (ICD-10-PCS; 2023-06-29)
PROC: 5A1945Z Respiratory Ventilation, 24-96 Consecutive Hours (ICD-10-PCS; 2023-06-29)
PROC: 0BH17EZ Insertion of Endotracheal Airway into Trachea, Via Natural or Artificial Opening (ICD-10-PCS; 2023-06-29)
PROC: 30233N1 Transfusion of Nonautologous Red Blood Cells into Peripheral Vein, Percutaneous Approach (ICD-10-PCS; 2023-06-29)
DX: I73.9 Peripheral vascular disease, unspecified (principal); G93.41 Metabolic encephalopathy; K55.069 Acute infarction of intestine, part and extent unspecified; R57.8 Other shock; K72.00 Acute and subacute hepatic failure without coma; N17.0 Acute kidney failure with tubular necrosis; J96.01 Acute respiratory failure with hypoxia; E87.20 Acidosis, unspecified; D62 Acute posthemorrhagic anemia; K63.3 Ulcer of intestine; J98.11 Atelectasis; K55.1 Chronic vascular disorders of intestine; K55.9 Vascular disorder of intestine, unspecified; E03.9 Hypothyroidism, unspecified; E78.5 Hyperlipidemia, unspecified; M10.9 Gout, unspecified; G47.33 Obstructive sleep apnea (adult) (pediatric); G89.29 Other chronic pain; F32.A Depression, unspecified; I12.9 Hypertensive chronic kidney disease with stage 1 through stage 4 chronic kidney disease, or unspecified chronic kidney disease; N18.30 Chronic kidney disease, stage 3 unspecified; E83.42 Hypomagnesemia; F10.10 Alcohol abuse, uncomplicated; K57.30 Diverticulosis of large intestine without perforation or abscess without bleeding; I95.9 Hypotension, unspecified; Z51.5 Encounter for palliative care; Z90.710 Acquired absence of both cervix and uterus; Z98.890 Other specified postprocedural states
CPT/HCPCS: 36415; 36416; 36430; 36600; 70450; 71045; 74176; 80048; 80053; 81001; 82140; 82533; 82805; 83605; 83690; 83735; 84100; 84443; 85025; 85027; 85610; 85730; 86850; 86900; 86901; 87040; 88307; 93005; 93010; 93306; 94002; 94003; A4649; C1713; C1751; C1776; C1889; C9113; J0171; J0360; J0665; J0694; J1200; J1642; J1644; J1720; J1940; J2060; J2250; J2405; J2543; J2720; J3010; J3370; J3411; J3475; J3480; J3490; J7050; J7070; J7120; J7999; P9016; P9045; P9047

== ENCOUNTER 2023-06-26 08:20 | Outpatient (CLI) | payer MEDICARE | END 2023-06-26 08:21 | disposition home or self-care (01) | LOC: LABBT 08:20 | PROVIDERS: ATTEND Thoracic Surgery (Cardiothoracic Vascular Surgery) | DX: Z01.810 Encounter for preprocedural cardiovascular examination (principal); I73.9 Peripheral vascular disease, unspecified | CPT/HCPCS: 93005; 93010 ==

== ENCOUNTER 2023-07-03 14:23 | Inpatient (IN) | payer OTHER ==
[2023-07-03] MEDS ORDERED: Lorazepam 2 MG/ML VIAL SLOW IVP PRN (14:38)
[2023-07-03] MEDS ORDERED: Bisacodyl 10 MG SUPP PR PRN (14:39)
[2023-07-03] MEDS ORDERED: Morphine 4 MG/ML VIAL SLOW IVP PRN (14:40)
[2023-07-03] MEDS ORDERED: Ondansetron PF 4 MG/2 ML Vial IVP PRN (14:45)
[2023-07-03] MEDS ORDERED: Acetaminophen 650 MG Suppository PR PRN (14:45)
[2023-07-03] MEDS ORDERED: Hyoscyamine SL 0.125 MG TAB SL PRN (14:45)
[2023-07-03] MEDS ORDERED: Haloperidol Lactate 5 MG/ML VIAL SLOW IVP PRN (14:45)
[2023-07-03] MEDS ORDERED: Scopolamine 1 mg/72 hour Patch TOP PRN (15:00)
== END 2023-07-03 15:55 | disposition expired | DRG 951 ==
LOC: CCU 14:23
PROVIDERS: ADMIT Internal Medicine Nephrology; ATTEND Internal Medicine Nephrology
DX: Z51.5 Encounter for palliative care (principal); G93.41 Metabolic encephalopathy; J96.01 Acute respiratory failure with hypoxia; K55.069 Acute infarction of intestine, part and extent unspecified; N17.0 Acute kidney failure with tubular necrosis; K72.00 Acute and subacute hepatic failure without coma; A41.9 Sepsis, unspecified organism; R65.21 Severe sepsis with septic shock; J98.11 Atelectasis; D62 Acute posthemorrhagic anemia; E87.20 Acidosis, unspecified; I10 Essential (primary) hypertension; E03.9 Hypothyroidism, unspecified; E78.5 Hyperlipidemia, unspecified; I73.9 Peripheral vascular disease, unspecified; M10.9 Gout, unspecified; E83.42 Hypomagnesemia; R57.1 Hypovolemic shock
CPT/HCPCS: J2060; J2270